=== PATIENT | female | born 1950 | race American Indian/Alaskan Native ===

== ENCOUNTER 2020-10-22 10:19 | Inpatient (IN) | payer BC, MEDICARE ==
--- NOTE | 2020-10-22 10:52 | Event Note ---
ED Screening Note Date of service: 10/22/20 Time: 10:50 ED Screening Note: 70-year-old -[place] female presents to the emergency room from a referral to her primary care provider for have an abnormal EKG. Patient does endorse that she has chest pressure that comes and goes and is worse with exertion up steps. Patient states that she does get a little short of breath when she walks up 13 steps. Patient also complains of 2 to 3 weeks of bilateral lower leg swelling with minimal discomfort not able to wear much of her shoes. It was reported to me by triage nurse that patient oxygen level bounces around as low as 91% on room air. This initial assessment/diagnostic orders/clinical plan/treatment(s) is/are subject to change based on patients health status, clinical progression and re- assessment by fellow clinical providers in the ED. Further treatment and workup at subsequent clinical providers discretion. Patient/guardian urged not to elope from the ED as their condition may be serious if not clinically assessed and managed. Initial orders include: Cardiac work-up with a BNP
[2020-10-22] MEDS ORDERED: ASPIRIN 81 MG TAB CHEW PO ONE (10:53)
[2020-10-22 11:10] LABS: Basophils % (Auto) 0.5 % (0.0-1.8); Eosinophils # (Auto) 0.3 K/mm3 (0.0-0.4); Eosinophils % (Auto) 4.1 % (0.0-4.3); Hematocrit 40.7 % (30.3-42.9); Hemoglobin 12.8 gm/dl (10.1-14.3); Lymphocytes % (Auto) 12.4 % (13.4-35.0); Mean Corpuscular HGB Conc 32 % (30-34); Mean Corpuscular Volume 89 fl (79-97); Monocytes # (Auto) 0.5 K/mm3 (0.0-0.8); Platelet Count 272 K/mm3 (140-440); Red Blood Count 4.56 M/mm3 (3.65-5.03)
--- NOTE | 2020-10-22 11:25 | Emergency Department Report ---
HPI - General Chief Complaint: Chest Pain Time Seen by Provider: 10/22/20 11:05 - [facility] HPI: Room 38 The patient is a 70-year-old female presenting with a chief complaint of chest pressure and lower extremity edema. The patient states for the past 3 weeks she has had exertional chest pressure and bilateral lower extremity edema. Patient denies nausea/vomiting or diaphoresis with her chest pressure but does admit to increased work of breathing with any form of exertion. Patient denies history of fever or contact with known COVID-19 positive patients. Patient admits to a chronic cough that she attributes to her sarcoidosis. ED Past Medical Hx - Past Medical History Previous Medical History?: Yes Additional medical history: scarcodosis - Surgical History Past Surgical History?: No - Family History Family history: no significant - Social History Smoking Status: Never Smoker Substance Use Type: None (Denies illicit drug use) - Medications Home Medications: Home Medications Medication Instructions Recorded Confirmed Last Taken Type Furosemide [Lasix] 10/22/20 Unknown History ED Review of Systems ROS: Stated complaint: CHEST PAIN Other details as noted in HPI Constitutional: denies: diaphoresis, fever Eyes: denies: eye pain ENT: denies: throat pain Respiratory: SOB with exertion Cardiovascular: chest pain, dyspnea on exertion Endocrine: no symptoms reported Gastrointestinal: denies: abdominal pain Genitourinary: denies: dysuria Musculoskeletal: denies: back pain Neurological: denies: headache Hematological/Lymphatic: other (Bilateral lower extremity edema) Physical Exam - Physical Exam Vital Signs: Vital Signs 10/22/20 10:49 Temperature 98.0 F Pulse Rate 106 H Respiratory 26 H Rate Blood Pressure 134/97 O2 Sat by Pulse 93 Oximetry Physical Exam: GENERAL: The patient is well-developed well-nourished female lying on stretcher not appearing to be in acute distress. [] HEENT: Normocephalic. Atraumatic. Extraocular motions are intact. Patient has moist mucous membranes. NECK: Supple. Trachea midline CHEST/LUNGS: Diminished at the right base. There is no respiratory distress noted. HEART/CARDIOVASCULAR: Regular. There is no tachycardia. There is no gallop rub or murmur. ABDOMEN: Abdomen is soft, nontender. Patient has normal bowel sounds. There is no abdominal distention. SKIN: There is no rash. There is 1+ bilateral lower extremity pitting edema. There is no diaphoresis. NEURO: The patient is awake, alert, and oriented. The patient is cooperative. The patient has no focal neurologic deficits. The patient has normal speech MUSCULOSKELETAL: There is no evidence of acute injury. ED Course Vital Signs 10/22/20 10:49 Temperature 98.0 F Pulse Rate 106 H Respiratory 26 H Rate Blood Pressure 134/97 O2 Sat by Pulse 93 Oximetry ED Medical Decision Making - Lab Data Result diagrams: 10/22/20 10:51 10/22/20 10:51 Laboratory Tests 10/22/20 10/22/20 10/22/20 10:51 10:51 10:51 WBC 7.8 RBC 4.56 Hgb 12.8 Hct 40.7 MCV 89 MCH 28 MCHC 32 RDW 15.0 Plt Count 272 Lymph % (Auto) 12.4 L [place] % (Auto) 6.0 Eos % (Auto) 4.1 Baso % (Auto) 0.5 Lymph # (Auto) 1.0 L [place] # (Auto) 0.5 Eos # (Auto) 0.3 Baso # (Auto) 0.0 Seg Neutrophils % 77.0 H Seg Neutrophils # 6.0 PT 13.8 INR 1.08 APTT 27.7 Sodium 141 Potassium 4.0 Chloride 105.8 Carbon Dioxide 27 Anion Gap 12 BUN 16 Creatinine 1.1 Estimated GFR 49 BUN/Creatinine Ratio 15 Glucose 89 Calcium 8.8 Total Bilirubin 0.40 AST 22 ALT 18 Alkaline Phosphatase 115 Troponin T < 0.010 NT-Pro-B Natriuret Pep Total Protein 7.3 Albumin 3.4 L Albumin/Globulin Ratio 0.9 10/22/20 10:51 WBC RBC Hgb Hct MCV MCH MCHC RDW Plt Count Lymph % (Auto) [place] % (Auto) Eos % (Auto) Baso % (Auto) Lymph # (Auto) [place] # (Auto) Eos # (Auto) Baso # (Auto) Seg Neutrophils % Seg Neutrophils # PT INR APTT Sodium Potassium Chloride Carbon Dioxide Anion Gap BUN Creatinine Estimated GFR BUN/Creatinine Ratio Glucose Calcium Total Bilirubin AST ALT Alkaline Phosphatase Troponin T NT-Pro-B Natriuret Pep 39926 H Total Protein Albumin Albumin/Globulin Ratio - EKG Data -: EKG Interpreted by Md EKG shows normal: sinus rhythm Rate: normal - EKG Data When compared to previous EKG there are: previous EKG unavailable Interpretation: nonspecific ST-T wave amelia (T wave inversions in leads III, aVF, V3, V4) - Radiology Data Radiology results: report reviewed (Chest x-ray), image reviewed (Chest x-ray) interpreted by me: Chest [id number] appearing interstitial disease. No pneumothorax [facility] [address] [place] [address] XRay Report Signed Patient: ROSALINAPIPPA MR#: [id number] : 1950 Acct:[id number] Age/Sex: 70 / F ADM Date: 10/22/20 Loc: ED Attending Dr: Ordering Physician: Amy Welch MD Date of Service: 10/22/20 Procedure(s): XR chest 1V ap Accession Number(s): [id number] cc: Amy Welch MD Fluoro Time In Minutes: CHEST 1 VIEW INDICATION: Chest Pain. COMPARISON: None FINDINGS: Support devices: None. Heart: Within normal limits. Lungs/Pleura: Severe diffuse interstitial prominence is seen throughout both lungs. Overall this appears chronic. Focal pleural thickening at the right lung apex is noted. No pleural effusion or pneumothorax is appreciated. Additional findings: None. IMPRESSION: Severe diffuse chronic interstitial lung disease is suspected. If further evaluation is needed, CT chest with contrast and high-resolution protocol is recommended. Signer Name: Niall Blair Jr, MD Signed: 10/22/2020 11:37 AM Workstation Name: [id number] Transcribed By: TTR Dictated By: NIALL BLAIR JR, MD Electronically Authenticated By: NIALL BLAIR JR, MD Signed Date/Time: 10/22/20 1137 DD/ 1136 TD/TT: - Differential Diagnosis ACS, CHF, pericarditis, GERD Critical care attestation.: If time is entered above; I have spent that time in minutes in the direct care of this critically ill patient, excluding procedure time. ED Disposition Clinical Impression: New onset of congestive heart failure, Chest pressure Disposition: OP ADMIT IP TO THIS HOSP Is pt being admited?: Yes Does the pt Need Aspirin: Yes Condition: Fair Time of Disposition: 12:01 (Hospitalist paged (Dr. Williamson)) HEART Score - HEART Score History: Highly suspicious EKG: Non-specific Age: > 65 Risk factors: 1-2 risk factors Troponin: Troponin T < 0.010 ng/mL (0.00-0.029) 10/22/20 10:51 Troponin: < normal limit HEART Score: 6
[2020-10-22 11:28] LABS: INR 1.08 (0.87-1.13); Partial Thromboplastin Time 27.7 Sec. (24.2-36.6)
--- NOTE | 2020-10-22 11:41 | XRay Report ---
CHEST 1 VIEW INDICATION: Chest Pain. COMPARISON: None FINDINGS: Support devices: None. Heart: Within normal limits. Lungs/Pleura: Severe diffuse interstitial prominence is seen throughout both lungs. Overall this appe ars chronic. Focal pleural thickening at the right lung apex is noted. No pleural effusion or pneumot horax is appreciated. Additional findings: None. IMPRESSION: Severe diffuse chronic interstitial lung disease is suspected. If further evaluation is needed, CT c hest with contrast and high-resolution protocol is recommended. Signer Name: Niall Burgess Jr, MD Signed: 10/22/2020 11:37 AM Workstation Name: [id number]
[2020-10-22] MEDS ORDERED: FUROSEMIDE 40 MG/4 ML INJ IV ONE (11:51)
[2020-10-22 11:53] LABS: Alanine Aminotransferase 18 units/L (7-56); Albumin 3.4 g/dL (3.9-5); BUN/Creatinine Ratio 15; Blood Urea Nitrogen 16 mg/dL (7-17); Calcium 8.8 mg/dL (8.4-10.2); Hemolysis Index 8
--- NOTE | 2020-10-22 12:42 | History and Physical Report ---
History of Present Illness Chief complaint: I feel weak History of present illness: 70 YO Female with Sarcoidosis, Severe Malnutrition presents to ED for evaluation. Patient reports "I feel weak". Patient states that she has experienced generalized weakness, decreased exercise tolerance, dyspnea on exertion, dyspnea at rest, bilateral lower extremity edema over the past 3 weeks with persistently worsening symptoms over the past 4 days. Patient was seen and evaluated by her primary care physician today and instructed to seek further care at [facility]. Patient transported to [facility] via private vehicle for further care and evaluation of the aforementioned symptoms. Patient seen and evaluated in the emergency department. All lab and imaging studies reviewed. Patient found to have clinical symptoms consistent with CHF decompensation. Patient also found to have CT scan findings on the chest consistent with pulmonary sarcoidosis. Patient admitted to telemetry and initiated on CHF protocol. Pulmonology team consulted in ED. Cardiology team consulted in ED. Patient denies fever, chills, chest pain, palpitation, productive cough, skin rash, recent ill contacts, or known exposure to COVID-19. No prior admission for review. No medication listed at time of admission for reconciliation. Advanced care planning conducted in ED. Past History Past Medical History: sarcoidosis, other (See HPI) Past Surgical History: No surgical history, Other (Reviewed) Social history: single. denies: smoking, alcohol abuse, prescription drug abuse Family history: hypertension Medications and Allergies Allergies Allergy/AdvReac Type Severity Reaction Status Date / Time No Known Allergies Allergy Verified 10/22/20 11:17 Home Medications Medication Instructions Recorded Confirmed Last Taken Type Furosemide [Lasix] 10/22/20 Unknown History Review of Systems Constitutional: no weight loss, no weight gain, no fever, no chills Ears, nose, mouth and throat: no ear pain, no tinnitis, no nose pain, no sinus pressure Breasts: no change in shape, no swelling Cardiovascular: no palpitations, no rapid/irregular heart beat, no lightheadedness Respiratory: shortness of breath, no cough, no cough with sputum, no hemoptysis Gastrointestinal: no abdominal pain, no nausea, no vomiting, no diarrhea, no change in bowel habits Genitourinary Female: no pelvic pain, no flank pain, no dysuria, no urinary frequency, no urgency Rectal: no pain, no incontinence, no bleeding Musculoskeletal: no neck stiffness, no neck pain, no arm numbness/tingling, no low back pain, no leg numbness/tingling Integumentary: no pruritis, no redness, no sores, no wounds, no jaundice, no blisters Neurological: no head injury, no transient paralysis, no weakness, no tingling, no seizures, no tremors, no ataxia Psychiatric: no anxiety, no sleep disturbances, no insomnia, no hypersomnia, no change in appetite Endocrine: no cold intolerance, no polyphagia, no excessive thirst, no polydipsia, no nocturia, no excessive sweating Hematologic/Lymphatic: no easy bleeding Allergic/Immunologic: no urticaria, no allergic rhinitis, no wheezing, no persistent infections, no anaphylaxis Exam - Constitutional Vitals: Temp Pulse Resp BP Pulse Ox 98.0 F 87 18 137/91 100 10/22/20 10:49 10/22/20 12:22 10/22/20 12:22 10/22/20 12:22 10/22/20 12:22 General appearance: Present: mild distress, cachectic - EENT Eyes: Present: PERRL ENT: hearing intact, clear oral mucosa - Neck Neck: Present: supple, normal ROM - Respiratory Respiratory effort: normal Respiratory: bilateral: diminished, rhonchi - Cardiovascular Heart Sounds: Present: S1 & S2. Absent: rub, click - Extremities Extremities: pulses symmetrical, No edema Peripheral Pulses: within normal limits - Abdominal General gastrointestinal: Present: soft, non-tender, non-distended, normal bowel sounds Female genitourinary: Present: normal - Integumentary Integumentary: Present: clear, warm, dry - Musculoskeletal Musculoskeletal: generalized weakness - Psychiatric Psychiatric: appropriate mood/affect, intact judgment & insight - Neurologic Neurologic: CNII-XII intact, moves all extremities HEART Score - HEART Score EKG: Non-specific Age: > 65 Risk factors: 1-2 risk factors Troponin: Troponin T < 0.010 ng/mL (0.00-0.029) 10/22/20 10:51 Troponin: < normal limit Results - Labs CBC & Chem 7: 10/22/20 10:51 10/22/20 10:51 Labs: Abnormal lab results 10/22/20 10/22/20 10/22/20 Range/Units 10:51 10:51 10:51 Lymph % (Auto) 12.4 L (13.4-35.0) % Lymph # (Auto) 1.0 L (1.2-5.4) K/mm3 Seg Neutrophils % 77.0 H (40.0-70.0) % NT-Pro-B Natriuret Pep 79049 H (0-900) pg/mL Albumin 3.4 L (3.9-5) g/dL Assessment and Plan - Patient Problems (1) New onset of congestive heart failure Current Visit: Yes Status: Acute Plan to address problem: Diastolic CHF: Strict I/O, monitor urine output every shift, daily weight, afterload reduction, echocardiogram ordered and is pending at time of admission, cardiology team consulted in ED, thyroid panel, magnesium level, supplemental oxygen. (2) Sarcoidosis Current Visit: Yes Status: Acute Plan to address problem: IV steroid therapy, supportive care, outpatient rheumatology follow-up. (3) Severe malnutrition Current Visit: Yes Status: Acute Plan to address problem: Increase protein intake, dietary supplementation as needed (4) DVT prophylaxis Current Visit: Yes Status: Acute Plan to address problem: SCD to bilateral lower extremities while in bed, patient is ambulatory. (5) Advance care planning Current Visit: Yes Status: Acute Plan to address problem: Disease education conducted, patient is full code, care plan discussed, prognosis discussed, diagnosis discussed, patient knowledges understanding and agreement with care plan, +30 minutes.
[2020-10-22] MEDS ORDERED: ACETAMINOPHEN 325 MG TAB PO PRN (13:00)
[2020-10-22] MEDS ORDERED: ONDANSETRON 4 MG/2 ML INJ IV PRN (13:30)
[2020-10-22] MEDS: methylPREDNISolone Sod Succinate 40 MG/1 ML INJ IV SCH ×2 (14:20→21:36)
[2020-10-22] MEDS ORDERED: ALBUTEROL 2.5 MG/3 ML NEBU IH PRN (16:00)
[2020-10-22 19:57] LABS: Free T4 (Free Thyroxine) 1.61 ng/dL (0.76-1.46)
[2020-10-23] MEDS: methylPREDNISolone Sod Succinate 40 MG/1 ML INJ IV SCH ×3 (05:55→22:59)
[2020-10-23 07:07] LABS: Basophils % (Auto) 0.3 % (0.0-1.8); Eosinophils % (Auto) 0.1 % (0.0-4.3); Hematocrit 39.5 % (30.3-42.9); Hemoglobin 12.7 gm/dl (10.1-14.3); Lymphocytes # (Auto) 0.5 K/mm3 (1.2-5.4); Lymphocytes % (Auto) 9.7 % (13.4-35.0); Mean Corpuscular HGB Conc 32 % (30-34); Mean Corpuscular Volume 89 fl (79-97); Monocytes # (Auto) 0.1 K/mm3 (0.0-0.8); Platelet Count 260 K/mm3 (140-440); Red Blood Count 4.43 M/mm3 (3.65-5.03); Red Cell Distribution Width 14.5 % (13.2-15.2)
[2020-10-23 07:26] LABS: Calcium 8.4 mg/dL (8.4-10.2)
--- NOTE | 2020-10-23 08:37 | Progress Note ---
Assessment and Plan Assessment and plan: (1) New onset of congestive heart failure Current Visit: Yes Status: Acute Plan to address problem: Diastolic CHF: Strict I/O, monitor urine output every shift, daily weight, afterload reduction, echocardiogram ordered and is pending at time of admission, cardiology team consulted in ED, thyroid panel, magnesium level, supplemental oxygen. (2) Sarcoidosis Current Visit: Yes Status: Acute Plan to address problem: IV steroid therapy, supportive care, outpatient rheumatology follow-up. (3) Severe malnutrition Current Visit: Yes Status: Acute Plan to address problem: Increase protein intake, dietary supplementation as needed (4) DVT prophylaxis Current Visit: Yes Status: Acute Plan to address problem: SCD to bilateral lower extremities while in bed, patient is ambulatory. (5) Advance care planning Current Visit: Yes Status: Acute Plan to address problem: 10/23/2020 -Patient is admitted for suspected CHF, patient has elevated BNP. Cardiology consulted and will get echo -Sarcoidosis; pulmonary consulted and recommend CT of the chest -Severe malnutrition; I will consult nutrition -Patient need PT OT evaluation -We will do home O2 evaluation History Interval history: Patient was seen and evaluated this morning Patient states she is feeling better and wants to go home Hospitalist Physical - Physical exam Narrative exam: Not in cardiopulmonary distress. The patient appeared well nourished and normally developed. Vital signs as documented. Head exam is unremarkable. No scleral icterus . Neck is without jugular venous distension, thyromegaly, or carotid bruits. Lungs are clear to auscultation. Cardiac exam reveals regular rate and Rhythm. Abdominal exam reveals normal bowel sounds, nontender, no organomegaly. Extremities bilateral lower extremity swelling. WINDOWS ADMIN: Alert and oriented 3. No focal weakness. - Constitutional Vitals: Temp Pulse Resp BP Pulse Ox 98.3 F 95 H 18 115/79 96 10/23/20 04:08 10/23/20 04:08 10/23/20 04:08 10/23/20 04:08 10/23/20 04:08 General appearance: Present: mild distress, cachectic HEART Score - HEART Score EKG: Non-specific Age: > 65 Risk factors: 1-2 risk factors Troponin: Troponin T < 0.010 ng/mL (0.00-0.029) 10/22/20 10:51 Troponin: < normal limit Results - Labs CBC & Chem 7: 10/23/20 05:29 02/20/21 05:29 Labs: Laboratory Last Values WBC 5.0 K/mm3 (4.5-11.0) 10/23/20 05:29 RBC 4.43 M/mm3 (3.65-5.03) 10/23/20 05:29 Hgb 12.7 gm/dl (10.1-14.3) 10/23/20 05:29 Hct 39.5 % (30.3-42.9) 10/23/20 05:29 MCV 89 fl (79-97) 10/23/20 05:29 MCH 29 pg (28-32) 10/23/20 05:29 MCHC 32 % (30-34) 10/23/20 05:29 RDW 14.5 % (13.2-15.2) 10/23/20 05:29 Plt Count 260 K/mm3 (140-440) 10/23/20 05:29 Lymph % (Auto) 9.7 % (13.4-35.0) L 10/23/20 05:29 [place] % (Auto) 2.0 % (0.0-7.3) 10/23/20 05:29 Eos % (Auto) 0.1 % (0.0-4.3) 10/23/20 05:29 Baso % (Auto) 0.3 % (0.0-1.8) 10/23/20 05:29 Lymph # (Auto) 0.5 K/mm3 (1.2-5.4) L 10/23/20 05:29 [place] # (Auto) 0.1 K/mm3 (0.0-0.8) 10/23/20 05:29 Eos # (Auto) 0.0 K/mm3 (0.0-0.4) 10/23/20 05:29 Baso # (Auto) 0.0 K/mm3 (0.0-0.1) 10/23/20 05:29 Seg Neutrophils % 87.9 % (40.0-70.0) H 10/23/20 05:29 Seg Neutrophils # 4.4 K/mm3 (1.8-7.7) 10/23/20 05:29 PT 13.8 Sec. (12.2-14.9) 10/22/20 10:51 INR 1.08 (0.87-1.13) 10/22/20 10:51 APTT 27.7 Sec. (24.2-36.6) 10/22/20 10:51 Sodium 141 mmol/L (137-145) 10/23/20 05:29 Potassium 4.3 mmol/L (3.6-5.0) 10/23/20 05:29 Chloride 104.5 mmol/L (98-107) 10/23/20 05:29 Carbon Dioxide 28 mmol/L (22-30) 10/23/20 05:29 Anion Gap 13 mmol/L 10/23/20 05:29 BUN 21 mg/dL (7-17) H 10/23/20 05:29 Creatinine 1.1 mg/dL (0.6-1.2) 10/23/20 05:29 Estimated GFR 59 ml/min 10/23/20 05:29 BUN/Creatinine Ratio 19 % 10/23/20 05:29 Glucose 175 mg/dL (65-100) H 10/23/20 05:29 Calcium 8.4 mg/dL (8.4-10.2) 10/23/20 05:29 Magnesium 1.90 mg/dL (1.7-2.3) 10/22/20 18:52 Total Bilirubin 0.40 mg/dL (0.1-1.2) 10/22/20 10:51 AST 22 units/L (5-40) 10/22/20 10:51 ALT 18 units/L (7-56) 10/22/20 10:51 Alkaline Phosphatase 115 units/L (35-129) 10/22/20 10:51 Troponin T < 0.010 ng/mL (0.00-0.029) 10/22/20 10:51 NT-Pro-B Natriuret Pep 27087 pg/mL (0-900) H 10/22/20 10:51 Total Protein 7.3 g/dL (6.3-8.2) 10/22/20 10:51 Albumin 3.4 g/dL (3.9-5) L 10/22/20 10:51 Albumin/Globulin Ratio 0.9 % 10/22/20 10:51 TSH 0.796 mlU/mL (0.270-4.200) 10/22/20 18:52 Free T4 1.61 ng/dL (0.76-1.46) H 10/22/20 18:52 [place]/IV: Voiding Method Toilet Active Medications - Current Medications Current Medications: Generic Name Dose Route Start Last Admin Trade Name Freq PRN Reason Stop Dose Admin Acetaminophen 650 mg 10/22/20 13:00 Acetaminophen 325 Mg Tab PO Q4H PRN Pain MILD(1-3)/Fever >100.5/QUINONES Albuterol 2.5 mg 10/22/20 16:00 Albuterol 2.5 Mg/3 Ml Nebu IH Q4HRT PRN Shortness Of Breath Methylprednisolone Sodium Succinate 40 mg 10/22/20 14:00 10/23/20 05:55 Methylprednisolone Sod Succinate 40 Mg/1 Ml Inj IV 40 mg Q8HR GABBI Administration Ondansetron HCl 4 mg 10/22/20 13:30 Ondansetron 4 Mg/2 Ml Inj IV Q8H PRN Nausea And Vomiting Sodium Chloride 10 ml 10/22/20 14:00 10/22/20 21:45 Sodium Chloride 0.9% 10 Ml Flush Syringe IV 10 ml BID GABBI Administration Sodium Chloride 10 ml 10/22/20 13:30 Sodium Chloride 0.9% 10 Ml Flush Syringe IV PRN PRN LINE FLUSH
--- NOTE | 2020-10-23 10:53 | Consultation ---
History of Present Illness Consult date: 10/23/20 Requesting physician: NELDA GARCIA Consult reason: congestive heart failure History of present illness: 70-year-old female with history of sarcoidosis malnutrition been having swelling in her legs on and off for several weeks. Patient also getting shortness of breath now going up stairs that was not present before no PND orthopnea. Patient in ED was found to have a BNP of 10,000. CT of the chest shows scarring from sarcoidosis swelling has improved with Lasix. Patient denies any fever chills. Patient was also found to be in hypoxic with saturation 91% and has been fluctuating. Patient states losing weight for several months. No diarrhea no black stools no syncope Past History Past Medical History: sarcoidosis, other (See HPI) Past Surgical History: No surgical history, Other (Reviewed) Social history: single. denies: smoking, alcohol abuse, prescription drug abuse Family history: hypertension Medications and Allergies Allergies Allergy/AdvReac Type Severity Reaction Status Date / Time No Known Allergies Allergy Verified 10/22/20 11:17 Home Medications Medication Instructions Recorded Confirmed Last Taken Type Furosemide [Lasix] 10/22/20 Unknown History Active Meds: Active Medications Acetaminophen (Acetaminophen 325 Mg Tab) 650 mg PO Q4H PRN PRN Reason: Pain MILD(1-3)/Fever >100.5/QUINONES Albuterol (Albuterol 2.5 Mg/3 Ml Nebu) 2.5 mg IH Q4HRT PRN PRN Reason: Shortness Of Breath Furosemide (Furosemide 20 Mg Tab) 20 mg PO QDAY [facility] Methylprednisolone Sodium Succinate (Methylprednisolone Sod Succinate 40 Mg/1 Ml Inj) 40 mg IV Q8HR [facility] Last Admin: 10/23/20 05:55 Dose: 40 mg Documented by: Metoprolol Succinate (Metoprolol Succinate Xl 25 Mg Tab) 25 mg PO QDAY GABBI Ondansetron HCl (Ondansetron 4 Mg/2 Ml Inj) 4 mg IV Q8H PRN PRN Reason: Nausea And Vomiting Sodium Chloride (Sodium Chloride 0.9% 10 Ml Flush Syringe) 10 ml IV BID [facility] Last Admin: 10/23/20 10:19 Dose: 10 ml Documented by: Sodium Chloride (Sodium Chloride 0.9% 10 Ml Flush Syringe) 10 ml IV PRN PRN PRN Reason: LINE FLUSH Review of Systems All systems: negative (As per the HPI) Physical Examination Vital Signs Temp Pulse Resp BP Pulse Ox 98.0 F 106 H 26 H 134/97 93 10/22/20 10:49 10/22/20 10:49 10/22/20 10:49 10/22/20 10:49 10/22/20 10:49 General appearance: no acute distress, cachectic HEENT: Positive: PERRL, Mucus Membranes Moist Neck: Positive: neck supple, trachea midline Cardiac: Positive: Reg Rate and Rhythm, S1/S2. Negative: Audible Murmur Lungs: Positive: clear to auscultation, Normal Breath Sounds Neuro: Positive: Grossly Intact Abdomen: Positive: Soft, Active Bowel Sounds. Negative: Tender, Distended Female genitourinary: deferred Skin: Positive: Clear Incision: Cardiac Cath Site Musculoskeletal: No Pain, Normal Range of Motion Extremities: Present: normal. Absent: edema Results 10/23/20 05:29 10/23/20 05:29 Cardiac Enzymes 10/22/20 Range/Units 10:51 AST 22 (5-40) units/L Coagulation 10/22/20 Range/Units 10:51 PT 13.8 (12.2-14.9) Sec. INR 1.08 (0.87-1.13) APTT 27.7 (24.2-36.6) Sec. CBC 10/22/20 10/23/20 Range/Units 10:51 05:29 WBC 7.8 5.0 (4.5-11.0) K/mm3 RBC 4.56 4.43 (3.65-5.03) M/mm3 Hgb 12.8 12.7 (10.1-14.3) gm/dl Hct 40.7 39.5 (30.3-42.9) % Plt Count 272 260 (140-440) K/mm3 Lymph # (Auto) 1.0 L 0.5 L (1.2-5.4) K/mm3 [place] # (Auto) 0.5 0.1 (0.0-0.8) K/mm3 Eos # (Auto) 0.3 0.0 (0.0-0.4) K/mm3 Baso # (Auto) 0.0 0.0 (0.0-0.1) K/mm3 Comprehensive Metabolic Panel 02/19/21 02/20/21 Range/Units 10:51 05:29 Sodium 141 141 (137-145) mmol/L Potassium 4.0 4.3 (3.6-5.0) mmol/L Chloride 105.8 104.5 (98-107) mmol/L Carbon Dioxide 27 28 (22-30) mmol/L BUN 16 21 H (7-17) mg/dL Creatinine 1.1 1.1 (0.6-1.2) mg/dL Glucose 89 175 H (65-100) mg/dL Calcium 8.8 8.4 (8.4-10.2) mg/dL AST 22 (5-40) units/L ALT 18 (7-56) units/L Alkaline Phosphatase 115 (35-129) units/L Total Protein 7.3 (6.3-8.2) g/dL Albumin 3.4 L (3.9-5) g/dL - Imaging and Cardiology Echo: pending EKG interpretations - Telemetry EKG Rhythm: Sinus Rhythm (Sinus rhythm nonspecific ST-T) Assessment and Plan 70-year-old female with respiratory failure with hypoxemia on oxygen elevated BNP suggestive of acute heart failure with sarcoidosis and malnutrition start low-dose beta-vincent therapy waiting echocardiogram continue diuretics change to oral. - Patient Problems (1) Acute respiratory failure with hypoxemia Current Visit: Yes Status: Chronic (2) Chest pressure Current Visit: Yes Status: Acute (3) New onset of congestive heart failure Current Visit: Yes Status: Acute (4) Sarcoidosis Current Visit: Yes Status: Chronic (5) Severe malnutrition Current Visit: Yes Status: Chronic
--- NOTE | 2020-10-23 11:57 | Consultation ---
History of Present Illness Reason for consult: dyspnea, hypoxemia, other (sarcoid) History of present illness: This is an elderly AAF w history of sarcoid for greater than 30 yrs treated with prednisone intermittently in the past, not on o2 at home who comes in with dyspnea. She was found to have LE swelling elevated BNP and hypoxia. She was treated with diuresis with improvement of swelling. She was dx with sarcoid in her late 30s. She was treated with steroids for about 6 mths. She has had intermittent flares and has required steroids. Her last steroid therapy was greater than 1 yr ago. She has had skin lesions but no cardiac or optho signs. She reports that she has had scarring in her lungs for 'a long time'. She is not on o2 at home. She also has lost 20 to 30 lbs in 6 mths. She has intermittent abdominal pain but no melaena or bloody stools, no hx of PUD. 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 denies: smoking, alcohol abuse, prescription drug abuse Family history: hypertension Medications and Allergies Allergies Allergy/AdvReac Type Severity Reaction Status Date / Time No Known Allergies Allergy Verified 10/22/20 11:17 Home Medications Medication Instructions Recorded Confirmed Last Taken Type Furosemide [Lasix] 10/22/20 Unknown History Active Meds: Active Medications Acetaminophen (Acetaminophen 325 Mg Tab) 650 mg PO Q4H PRN PRN Reason: Pain MILD(1-3)/Fever >100.5/QUINONES Albuterol (Albuterol 2.5 Mg/3 Ml Nebu) 2.5 mg IH Q4HRT PRN PRN Reason: Shortness Of Breath Furosemide (Furosemide 20 Mg Tab) 20 mg PO QDAY [facility] Methylprednisolone Sodium Succinate (Methylprednisolone Sod Succinate 40 Mg/1 Ml Inj) 40 mg IV Q8HR [facility] Last Admin: 10/23/20 05:55 Dose: 40 mg Documented by: Metoprolol Succinate (Metoprolol Succinate Xl 25 Mg Tab) 25 mg PO QDAY GABBI Ondansetron HCl (Ondansetron 4 Mg/2 Ml Inj) 4 mg IV Q8H PRN PRN Reason: Nausea And Vomiting Sodium Chloride (Sodium Chloride 0.9% 10 Ml Flush Syringe) 10 ml IV BID [facility] Last Admin: 10/23/20 10:19 Dose: 10 ml Documented by: Sodium Chloride (Sodium Chloride 0.9% 10 Ml Flush Syringe) 10 ml IV PRN PRN PRN Reason: LINE FLUSH Physical Examination Vital signs: Vital Signs Temp Pulse Resp BP Pulse Ox 98.0 F 106 H 26 H 134/97 93 10/22/20 10:49 10/22/20 10:49 10/22/20 10:49 10/22/20 10:49 10/22/20 10:49 ENT: oropharynx moist Neck: supple Effort: normal Ascultation: Bilateral: clear Cardiovascular: regular rate and rhythm Gastrointestinal: normoactive bowel sounds Integumentary: normal Extremities: edema Musculoskeletal: no deformities Gait: normal gait normal mental status, non-focal exam mood appropriate, affect normal Results - Laboratory Findings CBC and BMP: 10/23/20 05:29 10/23/20 05:29 PT/INR, D-dimer PT 13.8 Sec. (12.2-14.9) 10/22/20 10:51 INR 1.08 (0.87-1.13) 10/22/20 10:51 Abnormal lab findings: Abnormal Labs 10/22/20 10/22/20 10/22/20 10:51 10:51 10:51 Lymph % (Auto) 12.4 L Lymph # (Auto) 1.0 L Seg Neutrophils % 77.0 H BUN Glucose NT-Pro-B Natriuret Pep 40017 H Albumin 3.4 L Free T4 10/22/20 10/23/20 10/23/20 18:52 05:29 05:29 Lymph % (Auto) 9.7 L Lymph # (Auto) 0.5 L Seg Neutrophils % 87.9 H BUN 21 H Glucose 175 H NT-Pro-B Natriuret Pep Albumin Free T4 1.61 H - Diagnostic Findings Chest x-ray: report reviewed, image reviewed Assessment and Plan - Patient Problems (1) Edema Current Visit: Yes Status: Acute (2) New onset of congestive heart failure Current Visit: Yes Status: Acute (3) Acute respiratory failure with hypoxemia Current Visit: Yes Status: Chronic (4) Sarcoidosis Current Visit: Yes Status: Chronic (5) Severe malnutrition Current Visit: Yes Status: Chronic
[2020-10-23] MEDS: METOPROLOL SUCCINATE XL 25 MG TAB PO SCH (14:26)
[2020-10-23] MEDS: FUROSEMIDE 20 MG TAB PO SCH (14:26)
[2020-10-24 05:54] LABS: BUN/Creatinine Ratio 27; Blood Urea Nitrogen 24 mg/dL (7-17); Calcium 8.7 mg/dL (8.4-10.2); Hemolysis Index 3
[2020-10-24] MEDS: methylPREDNISolone Sod Succinate 40 MG/1 ML INJ IV SCH ×3 (06:54→22:10)
--- NOTE | 2020-10-24 09:43 | Progress Note ---
Assessment and Plan Assessment and plan: (1) New onset of congestive heart failure Current Visit: Yes Status: Acute Plan to address problem: Diastolic CHF: Strict I/O, monitor urine output every shift, daily weight, afterload reduction, echocardiogram ordered and is pending at time of admission, cardiology team consulted in ED, thyroid panel, magnesium level, supplemental oxygen. (2) Sarcoidosis Current Visit: Yes Status: Acute Plan to address problem: IV steroid therapy, supportive care, outpatient rheumatology follow-up. (3) Severe malnutrition Current Visit: Yes Status: Acute Plan to address problem: Increase protein intake, dietary supplementation as needed (4) DVT prophylaxis Current Visit: Yes Status: Acute Plan to address problem: SCD to bilateral lower extremities while in bed, patient is ambulatory. (5) Advance care planning Current Visit: Yes Status: Acute Plan to address problem: 10/23/2020 -Patient is admitted for suspected CHF, patient has elevated BNP. Cardiology consulted and will get echo -Sarcoidosis; pulmonary consulted and recommend CT of the chest -Severe malnutrition; I will consult nutrition -Patient need PT OT evaluation -We will do home O2 evaluation 10/24/2020 -CT chest was not done because patient did not have IV access -Pulmonary and cardiology consult appreciated -Patient is off oxygen History Interval history: Patient was seen and evaluated this morning Patient states she is feeling better, patient was off oxygen Hospitalist Physical - Physical exam Narrative exam: Not in cardiopulmonary distress. The patient appeared well nourished and normally developed. Vital signs as documented. Head exam is unremarkable. No scleral icterus . Neck is without jugular venous distension, thyromegaly, or carotid bruits. Lungs are clear to auscultation. Cardiac exam reveals regular rate and Rhythm. Abdominal exam reveals normal bowel sounds, nontender, no organomegaly. Extremities bilateral lower extremity swelling. EVALUATION SPECIALIST: Alert and oriented 3. No focal weakness. - Constitutional Vitals: Temp Pulse Resp BP Pulse Ox 97.4 F L 81 18 111/77 90 10/24/20 05:35 10/24/20 05:35 10/24/20 05:35 10/24/20 05:35 10/24/20 09:37 General appearance: Present: mild distress, cachectic HEART Score - HEART Score EKG: Non-specific Age: > 65 Risk factors: 1-2 risk factors Troponin: Troponin T < 0.010 ng/mL (0.00-0.029) 10/23/20 12:49 Troponin: < normal limit Results - Labs CBC & Chem 7: 10/23/20 05:29 10/24/20 04:18 Labs: Laboratory Last Values WBC 5.0 K/mm3 (4.5-11.0) 10/23/20 05:29 RBC 4.43 M/mm3 (3.65-5.03) 10/23/20 05:29 Hgb 12.7 gm/dl (10.1-14.3) 10/23/20 05:29 Hct 39.5 % (30.3-42.9) 10/23/20 05:29 MCV 89 fl (79-97) 10/23/20 05:29 MCH 29 pg (28-32) 10/23/20 05:29 MCHC 32 % (30-34) 10/23/20 05:29 RDW 14.5 % (13.2-15.2) 10/23/20 05:29 Plt Count 260 K/mm3 (140-440) 10/23/20 05:29 Lymph % (Auto) 9.7 % (13.4-35.0) L 10/23/20 05:29 [place] % (Auto) 2.0 % (0.0-7.3) 10/23/20 05:29 Eos % (Auto) 0.1 % (0.0-4.3) 10/23/20 05:29 Baso % (Auto) 0.3 % (0.0-1.8) 10/23/20 05:29 Lymph # (Auto) 0.5 K/mm3 (1.2-5.4) L 10/23/20 05:29 [place] # (Auto) 0.1 K/mm3 (0.0-0.8) 10/23/20 05:29 Eos # (Auto) 0.0 K/mm3 (0.0-0.4) 10/23/20 05:29 Baso # (Auto) 0.0 K/mm3 (0.0-0.1) 10/23/20 05:29 Seg Neutrophils % 87.9 % (40.0-70.0) H 10/23/20 05:29 Seg Neutrophils # 4.4 K/mm3 (1.8-7.7) 10/23/20 05:29 PT 13.8 Sec. (12.2-14.9) 10/22/20 10:51 INR 1.08 (0.87-1.13) 10/22/20 10:51 APTT 27.7 Sec. (24.2-36.6) 10/22/20 10:51 Sodium 140 mmol/L (137-145) 10/24/20 04:18 Potassium 4.4 mmol/L (3.6-5.0) 10/24/20 04:18 Chloride 104.1 mmol/L (98-107) 10/24/20 04:18 Carbon Dioxide 31 mmol/L (22-30) H 10/24/20 04:18 Anion Gap 9 mmol/L 10/24/20 04:18 BUN 24 mg/dL (7-17) H 10/24/20 04:18 Creatinine 0.9 mg/dL (0.6-1.2) 10/24/20 04:18 Estimated GFR > 60 ml/min 10/24/20 04:18 BUN/Creatinine Ratio 27 % 10/24/20 04:18 Glucose 81 mg/dL (65-100) 10/24/20 04:18 Calcium 8.7 mg/dL (8.4-10.2) 10/24/20 04:18 Magnesium 1.90 mg/dL (1.7-2.3) 10/22/20 18:52 Total Bilirubin 0.40 mg/dL (0.1-1.2) 10/22/20 10:51 AST 22 units/L (5-40) 10/22/20 10:51 ALT 18 units/L (7-56) 10/22/20 10:51 Alkaline Phosphatase 115 units/L (35-129) 10/22/20 10:51 Troponin T < 0.010 ng/mL (0.00-0.029) 10/23/20 12:49 NT-Pro-B Natriuret Pep 04019 pg/mL (0-900) H 10/22/20 10:51 Total Protein 7.3 g/dL (6.3-8.2) 10/22/20 10:51 Albumin 3.4 g/dL (3.9-5) L 10/22/20 10:51 Albumin/Globulin Ratio 0.9 % 10/22/20 10:51 TSH 0.796 mlU/mL (0.270-4.200) 10/22/20 18:52 Free T4 1.61 ng/dL (0.76-1.46) H 10/22/20 18:52 - Diagnostic Impressions Diagnostic Impressions: Echocardiogram 10/22/20 12:58 Transthoracic Echocardiogram Indication: Chest pain BP: 115/79 HR: 93 Conclusions *Global left ventricular systolic function is normal. *The estimated ejection fraction is 50-55%. *There is septal flattening of the interventricular septum consistent with right ventricular volume or pressure overload. *The right ventricle is mild to moderately dilated. *The right ventricular global systolic function is mildly reduced. *The right atrium is mildly dilated. *There is trace of mitral regurgitation. *There is no evidence of aortic regurgitation. *There is moderate tricuspid regurgitation. *The right ventricular systolic pressure is calculated at 66 mmHg. Findings Left Ventricle: The left ventricular chamber size is normal. Global left ventricular systolic function is normal. The estimated ejection fraction is 50-55%. There is septal flattening of the interventricular septum consistent with right ventricular volume or pressure overload. Abnormal left ventricular diastolic filling is observed, consistent with impaired relaxation. Left Atrium: The left atrial chamber size is normal. Right Ventricle: The right ventricle is mild to moderately dilated. The right ventricular global systolic function is mildly reduced. Right Atrium: The right atrium is mildly dilated. Aortic Valve: Mild aortic leaflet calcification is visualized. There is no evidence of aortic regurgitation. Mitral Valve: The mitral valve leaflets are mildly thickened. There is trace of mitral regurgitation. Tricuspid Valve: The tricuspid valve leaflets are normal. There is moderate tricuspid regurgitation. The right ventricular systolic pressure is calculated at 66 mmHg. Pulmonic Valve: The pulmonic valve appears normal. There is trace pulmonic regurgitation. Pericardium: There is no pericardial effusion. Aorta: The aorta appears normal. Venous: The inferior vena cava appears normal in size. There is less than 50% respiratory change in the inferior vena cava dimension. Measurements Chambers 2D Name Value Normal Range IVSd (2D) 1.09 cm (0.6 - 1.1) LVPWd (2D) 0.9 cm (0.6 - 1.1) LVIDd (2D) 3.22 cm (3.7 - 5.6) LVIDs (2D) 2.28 cm (2 - 3.8) LV FS (2D) 29.25 % - EF Teichholz (2D) 57.46 % - Ao root diameter (2D) 2.08 cm (2 - 3.7) Volumes/Mass Name Value Normal Range LA ESV SP 4CH (A/L) 24.23 ml - LA ESV SP 2CH (A/L) 19.81 ml - LA ESV BP (A/L) 22.69 ml - LA ESV BP (A/L) index 15.13 ml/m2 - LA ESV SP 4CH (MOD) 21.57 ml - LA ESV SP 2CH (MOD) 20.36 ml - LA ESV BP (MOD) 21 ml - LA ESV BP (MOD) index 14 ml/m2 - Diastolic/Systolic Function Name Value Normal Range MV E-wave Vmax 0.52 m/sec - MV deceleration time 189.47 msec - MV A-wave Vmax 0.9 m/sec - MV E:A ratio 0.58 ratio - Aortic Valve Name Value Normal Range AV Vmax 1.08 m/sec - AV VTI 18.28 cm - AV peak gradient 4.68 mmHg - AV mean gradient 2.38 mmHg - LVOT diameter 2.04 cm - LVOT Vmax 0.78 m/sec - LVOT VTI 14.26 cm - LVOT peak gradient 2.43 mmHg - LVOT mean gradient 1.27 mmHg - SV LVOT 46.41 ml - DAVID (continuity Vmax) 2.35 cm2 - DAVID (continuity VTI) 2.54 cm2 - Ascending Ao 2.33 cm - Tricuspid Valve Name Value Normal Range TR Vmax 3.81 m/sec - TR peak gradient 58 mmHg - RAP 8 mmHg - RVSP 66 mmHg - IVC diameter 2.05 cm (1.2 - 2.3) Pulmonic Valve/Qp:Qs Name Value Normal Range PV Vmax 0.87 m/sec - PV peak gradient 3.06 mmHg - CO end-diastolic Vmax 2.25 m/sec - PV acceleration time 114.18 msec - [place]/IV: Voiding Method Toilet Active Medications - Current Medications Current Medications: Generic Name Dose Route Start Last Admin Trade Name Freq PRN Reason Stop Dose Admin Acetaminophen 650 mg 10/22/20 13:00 Acetaminophen 325 Mg Tab PO Q4H PRN Pain MILD(1-3)/Fever >100.5/QUINONES Albuterol 2.5 mg 10/22/20 16:00 Albuterol 2.5 Mg/3 Ml Nebu IH Q4HRT PRN Shortness Of Breath Furosemide 20 mg 10/23/20 11:00 10/23/20 14:26 Furosemide 20 Mg Tab PO 20 mg QDAY GABBI Administration Methylprednisolone Sodium Succinate 40 mg 10/22/20 14:00 10/24/20 06:54 Methylprednisolone Sod Succinate 40 Mg/1 Ml Inj IV Not Given Q8HR GABBI Metoprolol Succinate 25 mg 10/23/20 11:00 10/23/20 14:26 Metoprolol Succinate Xl 25 Mg Tab PO 25 mg QDAY GABBI Administration Ondansetron HCl 4 mg 10/22/20 13:30 Ondansetron 4 Mg/2 Ml Inj IV Q8H PRN Nausea And Vomiting Sodium Chloride 10 ml 10/22/20 14:00 10/23/20 22:59 Sodium Chloride 0.9% 10 Ml Flush Syringe IV Not Given BID GABBI Sodium Chloride 10 ml 10/22/20 13:30 Sodium Chloride 0.9% 10 Ml Flush Syringe IV PRN PRN LINE FLUSH Nutrition/Malnutrition Assess - Dietary Evaluation Nutrition/Malnutrition Findings: Nutrition Notes Start: 10/23/20 10:48 Freq: Status: Active Protocol: Document 10/23/20 10:48 LM (Rec: 10/23/20 11:07 LM [id number]) Nutrition Notes Need for Assessment generated from: MD Order Initial or Follow up Assessment Current Diagnosis Heart Failure Other Pertinent Diagnosis Sarcoidosis Current Diet Cardiac Labs/Tests BUN 21 BG 175 Pertinent Medications Solumedrol Height 5 ft 4 in Weight 48.89 kg [place] Body Weight (kg) 54.54 BMI 18.5 Weight change and time frame 20-23% wt loss in 1 year Pitting edema noted Weight Status Underweight Subjective/Other Information MD consult for malnutrition. 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 Pt ate some toast for breakfast due to not liking the food. Food preferences updated. Pt ate 100% yesterday per chart. Pt newly dx with CHF. Discussed and provided HF handout. Observed muscle wasting of clavicle and deltoid area. Burn Absent Trauma Absent GI Symptoms None Current % PO Fair (50-74%) Minimum of two criteria Yes Interpretation of Weight Loss (non- 20% in 1 year severe) Muscle Mass Mild Depletion (non-severe) Fluid Accumulation Mild (non-severe) #2 Nutrition Diagnosis Food and nutrition-related knowledge deficit Etiology No prior diet education on CHF As Evidenced by Signs and Symptoms Pt with 2+ pitting edema #1 Nutrition Diagnosis Malnutrition Etiology Sarcoidosis, CHF As Evidenced by Signs and Symptoms 20% wt loss in 1 year, 2+ pitting edema, muscle wasting of clavicle and deltoid Is patient on ventilator? No Is Patient Ambulatory and/or Out of Bed Yes REE-([place]-St. Jeor-ambulatory/OOB) [ 1285.570 [id number]] Kcal/Kg value to use for calculation 33 Approximate Energy Requirements Using 1613 kcal/Kg Additional Notes Protein: 58-74g (1.2-1.5g/kg) Fluid: 1500-1900ml or per MD Nutrition Intervention Change Diet Order: Continue Add Supplement/Snack (indicate name/kcal Ensure Enlive BID /protein ) Provides kCal: 700 Provides Protein (gm) 40 Teaching Recipient Patient Learning Readiness Good Teaching Methods Discussion,Handout Education Handouts Provided CHF Nutrition Therapy Barriers to Learning No Barriers RD phone number provided Yes Patient aware of follow up options Yes Goal #1 Meet at least 80% of energy and protein needs Goal #2 Wt gain/maintenacne Anticipated Discharge Needs: Cardiac with ONS PRN Follow-Up By: 10/25/20 Additional Comments F/U for intakes, ONS tolerance
--- NOTE | 2020-10-24 09:57 | Progress Note ---
Assessment and Plan 70-year-old female with 30 years of sarcoidosis has elevated BNP echocardiogram shows normal LV function but severe pulmonary pretension with RV dilatation RV D-shaped. Patient has cor pulmonale continue diuretic therapy and has therapy as with pulmonology discussed with pulmonary - Patient Problems (1) Acute respiratory failure with hypoxemia Current Visit: Yes Status: Chronic (2) Chest pressure Current Visit: Yes Status: Acute (3) New onset of congestive heart failure Current Visit: Yes Status: Acute (4) Sarcoidosis Current Visit: Yes Status: Chronic (5) Severe malnutrition Current Visit: Yes Status: Chronic (6) Cor pulmonale Current Visit: Yes Status: Acute (7) Pulmonary arterial hypertension Current Visit: Yes Status: Acute Subjective Date of service: 10/24/20 Principal diagnosis: chf Interval history: sob has improved Objective Vital Signs Temp Pulse Resp BP Pulse Ox 10/24/20 09:37 90 10/24/20 08:50 98.1 F 78 19 113/74 100 10/24/20 05:35 97.4 F L 81 18 111/77 99 10/24/20 00:11 98.4 F 95 H 20 105/73 97 10/23/20 22:00 95 H 10/23/20 20:10 98.6 F 103 H 18 117/76 98 10/23/20 12:39 92 10/23/20 12:09 93 H 10/23/20 10:00 93 - Physical Examination General: No Apparent Distress HEENT: Positive: PERRL, Mucus Membranes Moist Neck: Positive: neck supple, trachea midline Cardiac: Positive: Reg Rate and Rhythm, Audible Murmur Lungs: Positive: clear to auscultation Neuro: Positive: Grossly Intact Abdomen: Positive: Soft, Active Bowel Sounds. Negative: Tender, Distended Skin: Positive: Clear Incision: Cardiac Cath Site Musculoskeletal: No Pain, Normal Range of Motion Extremities: Present: normal. Absent: edema - Labs and Meds Comprehensive Metabolic Panel 10/24/20 Range/Units 04:18 Sodium 140 (137-145) mmol/L Potassium 4.4 (3.6-5.0) mmol/L Chloride 104.1 (98-107) mmol/L Carbon Dioxide 31 H (22-30) mmol/L BUN 24 H (7-17) mg/dL Creatinine 0.9 (0.6-1.2) mg/dL Glucose 81 (65-100) mg/dL Calcium 8.7 (8.4-10.2) mg/dL - Imaging and Cardiology Echo: report reviewed (Normal LV function moderate right ventricle dilatation with severe pulmonary hypertension) - Telemetry EKG Rhythm: Sinus Rhythm
[2020-10-24] MEDS: METOPROLOL SUCCINATE XL 25 MG TAB PO SCH (10:32)
[2020-10-24] MEDS: FUROSEMIDE 20 MG TAB PO SCH (10:32)
--- NOTE | 2020-10-24 11:10 | Cat Scan Report ---
CT CHEST WITH CONTRAST INDICATION / CLINICAL INFORMATION: sarcoid, hypoxia , fibrosis. TECHNIQUE: Axial CT images were obtained through the chest after IV contrast. All CT scans at this location are performed using CT dose reduction for ALARA by means of automated exposure control. COMPARISON: None available. FINDINGS: HEART: No significant abnormality. Mild coronary artery calcic ages. THORACIC AORTA: Mild atherosclerotic calcification without acute abnormality. MEDIASTINUM and LAVINIA: No significant abnormality. LUNGS: Grossly abnormal bilateral parenchymal lung tissue with central lobar and paraseptal emphysema tous changes most severe in the biapical region. Additionally there is minimal honeycombing at the brock ng bases. Traction bronchiectasis is noted with significant interlobular septal thickening most sever e in the right upper and middle lobe. PLEURA: Moderate right-sided pleural effusion. Small left-sided pleural effusion. No pneumothorax. ADDITIONAL FINDINGS: 1.4 cm heterogeneous nodule of the left thyroid lobe. UPPER ABDOMEN: No acute findings of the upper abdomen. Heterogeneity noted throughout the hepatic par enchyma (likely perfusion defect) without evidence of focal hepatic lesion. There is a 1.7 cm hyperat tenuating lesion anterior margin of the spleen. Large partially visualized simple renal cyst left inf erior pole. SKELETAL SYSTEM: Multilevel degenerative changes are noted of the spine with exaggerated thoracic kyp hosis. No aggressive lesions are noted. IMPRESSION: 1. Extensive interstitial lung disease and fibrosis as described above likely related to the patient' s known history of sarcoid. 2. Moderate right and small left-sided pleural effusions. 3. 1.7 cm homogenous hyperattenuating lesion of the spleen demonstrates no aggressive features. This is likely benign however given its attenuation, follow-up imaging in 6 to be considered. 4. Incidentally noted 1.4 cm left thyroid nodule. Recommendations for follow-up as below. INCIDENTAL THYROID NODULE RECOMMENDATION RECOMMENDATION: No follow-up recommended. Nonpalpable nodules detected on US or other anatomic imaging studies are termed incidentally discover ed nodules or incidentalomas. Nonpalpable nodules have the same risk of malignancy as palpable nodule s with the same size. Generally, only nodules >1 cm should be evaluated, since they have a greater po tential to be clinically significant cancers. (IVETTE, 2009). Follow up for incidental thyroid nodules <1 cm is not recommended. Diagnostic thyroid ultrasound is recommended only if the patient meets the following criteria: (1) < 35 years of age with normal life expectancy and nodule >= 1 cm. (2) >= 35 years of age with normal life expectancy and nodule >= 1.5 cm. ACR Ultrasound for incidental thyroid nodules: [email or web address] Signer Name: Jn Vincent MD Signed: 10/24/2020 11:05 AM Workstation Name: [id number]
--- NOTE | 2020-10-24 12:03 | Progress Note ---
Assessment and Plan - Patient Problems (1) Edema Current Visit: Yes Status: Acute (2) New onset of congestive heart failure Current Visit: Yes Status: Acute (3) Acute respiratory failure with hypoxemia Current Visit: Yes Status: Chronic (4) Sarcoidosis Current Visit: Yes Status: Chronic (5) Severe malnutrition Current Visit: Yes Status: Chronic (6) Pulmonary fibrosis Current Visit: Yes Status: Acute (7) Pleural effusion Current Visit: Yes Status: Acute Subjective Principal diagnosis: chf Interval history: pt feels better still sob w exertion Objective Vital Signs - 12hr 10/24/20 10/24/20 10/24/20 00:11 05:35 08:50 Temperature 98.4 F 97.4 F L 98.1 F Pulse Rate 95 H 81 78 Respiratory 20 18 19 Rate Blood Pressure 105/73 111/77 113/74 O2 Sat by Pulse 97 99 100 Oximetry 10/24/20 10/24/20 09:37 10:00 Temperature Pulse Rate 67 Respiratory Rate Blood Pressure O2 Sat by Pulse 90 Oximetry Constitutional: no acute distress ENT: oropharynx moist Neck: supple Effort: normal Ascultation: Bilateral: diminished breath sounds Cardiovascular: regular rate and rhythm Gastrointestinal: normoactive bowel sounds Integumentary: normal Extremities: edema Neurologic: normal mental status, non-focal exam Psychiatric: mood appropriate, affect normal CBC and BMP: 10/23/20 05:29 10/24/20 04:18 ABG, PT/INR, D-dimer: PT/INR, D-dimer PT 13.8 Sec. (12.2-14.9) 10/22/20 10:51 INR 1.08 (0.87-1.13) 10/22/20 10:51 Abnormal lab findings: Abnormal Labs 10/22/20 10/22/20 10/22/20 10:51 10:51 10:51 Lymph % (Auto) 12.4 L Lymph # (Auto) 1.0 L Seg Neutrophils % 77.0 H Carbon Dioxide BUN Glucose NT-Pro-B Natriuret Pep 57678 H Albumin 3.4 L Free T4 10/22/20 10/23/20 10/23/20 18:52 05:29 05:29 Lymph % (Auto) 9.7 L Lymph # (Auto) 0.5 L Seg Neutrophils % 87.9 H Carbon Dioxide BUN 21 H Glucose 175 H NT-Pro-B Natriuret Pep Albumin Free T4 1.61 H 10/24/20 04:18 Lymph % (Auto) Lymph # (Auto) Seg Neutrophils % Carbon Dioxide 31 H BUN 24 H Glucose NT-Pro-B Natriuret Pep Albumin Free T4 CT scan - chest: report reviewed
[2020-10-25] MEDS: methylPREDNISolone Sod Succinate 40 MG/1 ML INJ IV SCH (06:25)
--- NOTE | 2020-10-25 08:17 | Progress Note ---
Assessment and Plan Assessment and plan: (1) New onset of congestive heart failure Current Visit: Yes Status: Acute Plan to address problem: Diastolic CHF: Strict I/O, monitor urine output every shift, daily weight, afterload reduction, echocardiogram ordered and is pending at time of admission, cardiology team consulted in ED, thyroid panel, magnesium level, supplemental oxygen. 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 (3) Severe malnutrition Current Visit: Yes Status: Acute Plan to address problem: Increase protein intake, dietary supplementation as needed (4) DVT prophylaxis Current Visit: Yes Status: Acute Plan to address problem: SCD to bilateral lower extremities while in bed, patient is ambulatory. (5) Advance care planning Current Visit: Yes Status: Acute Plan to address problem: 10/23/2020 -Patient is admitted for suspected CHF, patient has elevated BNP. Cardiology consulted and will get echo -Sarcoidosis; pulmonary consulted and recommend CT of the chest -Severe malnutrition; I will consult nutrition -Patient need PT OT evaluation -We will do home O2 evaluation 10/24/2020 -CT chest was not done because patient did not have IV access -Pulmonary and cardiology consult appreciated -Patient is off oxygen 10/25/2020 -CT chest was done and showed moderate pleural effusion, with extensive fibrosis, pulmonary was consulted and said will do thoracentesis, on prednisone -Echo showed pulmonary hypertension, management is per pulmonary -Cardiology consult appreciated -Patient currently does not have any shortness of breath, off oxygen saturating well -Disposition is per pulmonary History Interval history: Patient was seen and evaluated this morning Patient states she is feeling better, patient was off oxygen Hospitalist Physical - Physical exam Narrative exam: Not in cardiopulmonary distress. The patient appeared well nourished and normally developed. Vital signs as documented. Head exam is unremarkable. No scleral icterus . Neck is without jugular venous distension, thyromegaly, or carotid bruits. Lungs are clear to auscultation. Cardiac exam reveals regular rate and Rhythm. Abdominal exam reveals normal bowel sounds, nontender, no organomegaly. Extremities bilateral lower extremity swelling. 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 No focal weakness. - Constitutional Vitals: Temp Pulse Resp BP Pulse Ox 98.0 F 80 14 109/76 93 10/25/20 03:47 10/25/20 03:47 10/25/20 03:47 10/25/20 03:47 10/25/20 03:47 General appearance: Present: mild distress, cachectic HEART Score - HEART Score EKG: Non-specific Age: > 65 Risk factors: 1-2 risk factors Troponin: Troponin T < 0.010 ng/mL (0.00-0.029) 10/23/20 12:49 Troponin: < normal limit Results - Labs CBC & Chem 7: 10/23/20 05:29 10/24/20 04:18 Labs: Laboratory Last Values WBC 5.0 K/mm3 (4.5-11.0) 10/23/20 05:29 RBC 4.43 M/mm3 (3.65-5.03) 10/23/20 05:29 Hgb 12.7 gm/dl (10.1-14.3) 10/23/20 05:29 Hct 39.5 % (30.3-42.9) 10/23/20 05:29 MCV 89 fl (79-97) 10/23/20 05:29 MCH 29 pg (28-32) 10/23/20 05:29 MCHC 32 % (30-34) 10/23/20 05:29 RDW 14.5 % (13.2-15.2) 10/23/20 05:29 Plt Count 260 K/mm3 (140-440) 10/23/20 05:29 Lymph % (Auto) 9.7 % (13.4-35.0) L 10/23/20 05:29 [place] % (Auto) 2.0 % (0.0-7.3) 10/23/20 05:29 Eos % (Auto) 0.1 % (0.0-4.3) 10/23/20 05:29 Baso % (Auto) 0.3 % (0.0-1.8) 10/23/20 05:29 Lymph # (Auto) 0.5 K/mm3 (1.2-5.4) L 10/23/20 05:29 [place] # (Auto) 0.1 K/mm3 (0.0-0.8) 10/23/20 05:29 Eos # (Auto) 0.0 K/mm3 (0.0-0.4) 10/23/20 05:29 Baso # (Auto) 0.0 K/mm3 (0.0-0.1) 10/23/20 05:29 Seg Neutrophils % 87.9 % (40.0-70.0) H 10/23/20 05:29 Seg Neutrophils # 4.4 K/mm3 (1.8-7.7) 10/23/20 05:29 PT 13.8 Sec. (12.2-14.9) 10/22/20 10:51 INR 1.08 (0.87-1.13) 10/22/20 10:51 APTT 27.7 Sec. (24.2-36.6) 10/22/20 10:51 Sodium 140 mmol/L (137-145) 10/24/20 04:18 Potassium 4.4 mmol/L (3.6-5.0) 10/24/20 04:18 Chloride 104.1 mmol/L (98-107) 10/24/20 04:18 Carbon Dioxide 31 mmol/L (22-30) H 10/24/20 04:18 Anion Gap 9 mmol/L 10/24/20 04:18 BUN 24 mg/dL (7-17) H 10/24/20 04:18 Creatinine 0.9 mg/dL (0.6-1.2) 10/24/20 04:18 Estimated GFR > 60 ml/min 10/24/20 04:18 BUN/Creatinine Ratio 27 % 10/24/20 04:18 Glucose 81 mg/dL (65-100) 10/24/20 04:18 Calcium 8.7 mg/dL (8.4-10.2) 10/24/20 04:18 Magnesium 1.90 mg/dL (1.7-2.3) 10/22/20 18:52 Total Bilirubin 0.40 mg/dL (0.1-1.2) 10/22/20 10:51 AST 22 units/L (5-40) 10/22/20 10:51 ALT 18 units/L (7-56) 10/22/20 10:51 Alkaline Phosphatase 115 units/L (35-129) 10/22/20 10:51 Troponin T < 0.010 ng/mL (0.00-0.029) 10/23/20 12:49 NT-Pro-B Natriuret Pep 82606 pg/mL (0-900) H 10/22/20 10:51 Total Protein 7.3 g/dL (6.3-8.2) 10/22/20 10:51 Albumin 3.4 g/dL (3.9-5) L 10/22/20 10:51 Albumin/Globulin Ratio 0.9 % 10/22/20 10:51 TSH 0.796 mlU/mL (0.270-4.200) 10/22/20 18:52 Free T4 1.61 ng/dL (0.76-1.46) H 10/22/20 18:52 - Diagnostic Impressions Diagnostic Impressions: Echocardiogram 10/22/20 12:58 Transthoracic Echocardiogram Indication: Chest pain BP: 115/79 HR: 93 Conclusions *Global left ventricular systolic function is normal. *The estimated ejection fraction is 50-55%. *There is septal flattening of the interventricular septum consistent with right ventricular volume or pressure overload. *The right ventricle is mild to moderately dilated. *The right ventricular global systolic function is mildly reduced. *The right atrium is mildly dilated. *There is trace of mitral regurgitation. *There is no evidence of aortic regurgitation. *There is moderate tricuspid regurgitation. *The right ventricular systolic pressure is calculated at 66 mmHg. Findings Left Ventricle: The left ventricular chamber size is normal. Global left ventricular systolic function is normal. The estimated ejection fraction is 50-55%. There is septal flattening of the interventricular septum consistent with right ventricular volume or pressure overload. Abnormal left ventricular diastolic filling is observed, consistent with impaired relaxation. Left Atrium: The left atrial chamber size is normal. Right Ventricle: The right ventricle is mild to moderately dilated. The right ventricular global systolic function is mildly reduced. Right Atrium: The right atrium is mildly dilated. Aortic Valve: Mild aortic leaflet calcification is visualized. There is no evidence of aortic regurgitation. Mitral Valve: The mitral valve leaflets are mildly thickened. There is trace of mitral regurgitation. Tricuspid Valve: The tricuspid valve leaflets are normal. There is moderate tricuspid regurgitation. The right ventricular systolic pressure is calculated at 66 mmHg. Pulmonic Valve: The pulmonic valve appears normal. There is trace pulmonic regurgitation. Pericardium: There is no pericardial effusion. Aorta: The aorta appears normal. Venous: The inferior vena cava appears normal in size. There is less than 50% respiratory change in the inferior vena cava dimension. Measurements Chambers 2D Name Value Normal Range IVSd (2D) 1.09 cm (0.6 - 1.1) LVPWd (2D) 0.9 cm (0.6 - 1.1) LVIDd (2D) 3.22 cm (3.7 - 5.6) LVIDs (2D) 2.28 cm (2 - 3.8) LV FS (2D) 29.25 % - EF Teichholz (2D) 57.46 % - Ao root diameter (2D) 2.08 cm (2 - 3.7) Volumes/Mass Name Value Normal Range LA ESV SP 4CH (A/L) 24.23 ml - LA ESV SP 2CH (A/L) 19.81 ml - LA ESV BP (A/L) 22.69 ml - LA ESV BP (A/L) index 15.13 ml/m2 - LA ESV SP 4CH (MOD) 21.57 ml - LA ESV SP 2CH (MOD) 20.36 ml - LA ESV BP (MOD) 21 ml - LA ESV BP (MOD) index 14 ml/m2 - Diastolic/Systolic Function Name Value Normal Range MV E-wave Vmax 0.52 m/sec - MV deceleration time 189.47 msec - MV A-wave Vmax 0.9 m/sec - MV E:A ratio 0.58 ratio - Aortic Valve Name Value Normal Range AV Vmax 1.08 m/sec - AV VTI 18.28 cm - AV peak gradient 4.68 mmHg - AV mean gradient 2.38 mmHg - LVOT diameter 2.04 cm - LVOT Vmax 0.78 m/sec - LVOT VTI 14.26 cm - LVOT peak gradient 2.43 mmHg - LVOT mean gradient 1.27 mmHg - SV LVOT 46.41 ml - DAVID (continuity Vmax) 2.35 cm2 - DAVID (continuity VTI) 2.54 cm2 - Ascending Ao 2.33 cm - Tricuspid Valve Name Value Normal Range TR Vmax 3.81 m/sec - TR peak gradient 58 mmHg - RAP 8 mmHg - RVSP 66 mmHg - IVC diameter 2.05 cm (1.2 - 2.3) Pulmonic Valve/Qp:Qs Name Value Normal Range PV Vmax 0.87 m/sec - PV peak gradient 3.06 mmHg - TX end-diastolic Vmax 2.25 m/sec - PV acceleration time 114.18 msec - [place]/IV: Voiding Method Toilet Active Medications - Current Medications Current Medications: Generic Name Dose Route Start Last Admin Trade Name Freq PRN Reason Stop Dose Admin Acetaminophen 650 mg 10/22/20 13:00 Acetaminophen 325 Mg Tab PO Q4H PRN Pain MILD(1-3)/Fever >100.5/QUINONES Albuterol 2.5 mg 10/22/20 16:00 Albuterol 2.5 Mg/3 Ml Nebu IH Q4HRT PRN Shortness Of Breath Furosemide 20 mg 10/23/20 11:00 10/24/20 10:32 Furosemide 20 Mg Tab PO 20 mg QDAY GABBI Administration Methylprednisolone Sodium Succinate 40 mg 10/22/20 14:00 10/25/20 06:25 Methylprednisolone Sod Succinate 40 Mg/1 Ml Inj IV 40 mg Q8HR GABBI Administration Metoprolol Succinate 25 mg 10/23/20 11:00 10/24/20 10:32 Metoprolol Succinate Xl 25 Mg Tab PO 25 mg QDAY GABBI Administration Ondansetron HCl 4 mg 10/22/20 13:30 Ondansetron 4 Mg/2 Ml Inj IV Q8H PRN Nausea And Vomiting Sodium Chloride 10 ml 10/22/20 14:00 10/24/20 22:10 Sodium Chloride 0.9% 10 Ml Flush Syringe IV 10 ml BID GABBI Administration Sodium Chloride 10 ml 10/22/20 13:30 10/25/20 06:25 Sodium Chloride 0.9% 10 Ml Flush Syringe IV 10 ml PRN PRN Administration LINE FLUSH Nutrition/Malnutrition Assess - Dietary Evaluation Nutrition/Malnutrition Findings: Nutrition Notes Start: 10/23/20 10:48 Freq: Status: Active Protocol: Document 10/23/20 10:48 LM (Rec: 10/23/20 11:07 LM [email or web address]) Nutrition Notes Need for Assessment generated from: MD Order Initial or Follow up Assessment Current Diagnosis Heart Failure Other Pertinent Diagnosis Sarcoidosis Current Diet Cardiac Labs/Tests BUN 21 BG 175 Pertinent Medications Solumedrol Height 5 ft 4 in Weight 48.89 kg [place] Body Weight (kg) 54.54 BMI 18.5 Weight change and time frame 20-23% wt loss in 1 year Pitting edema noted Weight Status Underweight Subjective/Other Information MD consult for malnutrition. 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 Pt ate some toast for breakfast due to not liking the food. Food preferences updated. Pt ate 100% yesterday per chart. Pt newly dx with CHF. Discussed and provided HF handout. Observed muscle wasting of clavicle and deltoid area. Burn Absent Trauma Absent GI Symptoms None Current % PO Fair (50-74%) Minimum of two criteria Yes Interpretation of Weight Loss (non- 20% in 1 year severe) Muscle Mass Mild Depletion (non-severe) Fluid Accumulation Mild (non-severe) #2 Nutrition Diagnosis Food and nutrition-related knowledge deficit Etiology No prior diet education on CHF As Evidenced by Signs and Symptoms Pt with 2+ pitting edema #1 Nutrition Diagnosis Malnutrition Etiology Sarcoidosis, CHF As Evidenced by Signs and Symptoms 20% wt loss in 1 year, 2+ pitting edema, muscle wasting of clavicle and deltoid Is patient on ventilator? No Is Patient Ambulatory and/or Out of Bed Yes REE-([place] or-ambulatory/OOB) [ 1285.570 [id number]] Kcal/Kg value to use for calculation 33 Approximate Energy Requirements Using 1613 kcal/Kg Additional Notes Protein: 58-74g (1.2-1.5g/kg) Fluid: 1500-1900ml or per MD Nutrition Intervention Change Diet Order: Continue Add Supplement/Snack (indicate name/kcal Ensure Enlive BID /protein ) Provides kCal: 700 Provides Protein (gm) 40 Teaching Recipient Patient Learning Readiness Good Teaching Methods Discussion,Handout Education Handouts Provided CHF Nutrition Therapy Barriers to Learning No Barriers RD phone number provided Yes Patient aware of follow up options Yes Goal #1 Meet at least 80% of energy and protein needs Goal #2 Wt gain/maintenacne Anticipated Discharge Needs: Cardiac with ONS PRN Follow-Up By: 10/25/20 Additional Comments F/U for intakes, ONS tolerance
[2020-10-25 09:30] VITALS: BP 115/84
[2020-10-25] MEDS: FUROSEMIDE 20 MG TAB PO SCH (09:32)
[2020-10-25] MEDS: METOPROLOL SUCCINATE XL 25 MG TAB PO SCH (09:32)
--- NOTE | 2020-10-25 10:18 | Progress Note ---
Assessment and Plan 70-year-old female with 30 years of sarcoidosis has elevated BNP echocardiogram shows normal LV function but severe pulmonary pretension with RV dilatation RV D-shaped. Patient has cor pulmonale continue diuretic therapy and has therapy as with pulmonology discussed with pulmonary. Pt for possible US guided thoracentesis today. Currently stable cardiac status. Nothing further to add from cardiac perspective at this time. Will sign off. Follow up in our [place] office with Dr. Jovel on 11/22/2020 @ 1:45PM. The patient has been seen in conjunction with Dr. Jovel who agrees with the assessment and plan of care. - Patient Problems (1) Acute respiratory failure with hypoxemia Current Visit: Yes Status: Chronic (2) Chest pressure Current Visit: Yes Status: Resolved (3) New onset of congestive heart failure Current Visit: Yes Status: Acute (4) Sarcoidosis Current Visit: Yes Status: Chronic (5) Severe malnutrition Current Visit: Yes Status: Chronic (6) Cor pulmonale Current Visit: Yes Status: Acute (7) Pulmonary arterial hypertension Current Visit: Yes Status: Acute Subjective Date of service: 10/25/20 Principal diagnosis: chf Interval history: pt lying flat comfortably in bed, no current cardiac complaints. for possible US guided thoracentesis today. tele reviewed - in SR HR 70s. Objective Last Vital Signs Temp 97.8 F 10/25/20 08:45 Pulse 80 10/25/20 09:32 Resp 18 10/25/20 08:45 BP 115/84 10/25/20 09:32 Pulse Ox 93 10/25/20 08:45 - Physical Examination General: No Apparent Distress HEENT: Positive: PERRL, Mucus Membranes Moist Neck: Positive: neck supple, trachea midline Cardiac: Positive: Reg Rate and Rhythm, S1/S2 Lungs: Positive: Decreased Breath Sounds Neuro: Positive: Grossly Intact Abdomen: Positive: Soft, Active Bowel Sounds. Negative: Tender, Distended Skin: Positive: Clear Incision: Cardiac Cath Site Musculoskeletal: No Pain, Normal Range of Motion Extremities: Present: normal. Absent: edema - Imaging and Cardiology Echo: report reviewed (Normal LV function moderate right ventricle dilatation with severe pulmonary hypertension) - Telemetry EKG Rhythm: Sinus Rhythm
--- NOTE | 2020-10-25 12:28 | Ultrasound Report ---
Limited right chest Ultrasound HISTORY: Evaluate for right-sided pleural effusion for thoracentesis. TECHNIQUE: Grayscale and color imaging performed. COMPARISON: CT chest from yesterday IMPRESSION: There is a trace right-sided pleural effusion with volume insufficient for thoracentesis. These findings were discussed with the patient. Signer Name: Praveen Quinn MD Signed: 10/25/2020 12:24 PM Workstation Name: [id number]
--- NOTE | 2020-10-25 14:05 | Discharge Summary ---
Providers - Providers Date of Admission: 10/22/20 12:54 Date of discharge: 10/25/20 Attending physician: DURGA CHAVIRA MD 10/22/20 12:54 Consult to Physician [CONS] Routine Comment: Consulting Provider: DEMETRIUS STALEY Physician Instructions: Reason For Exam: Sarcoidosis 10/22/20 15:08 Consult to Cardiology [CONS] Routine Consulting Provider: BILLY WELLS Reason For Exam: CHF/sarcoidosis 10/23/20 08:40 Physical Therapy Evaluation and Treat [CONS] Routine Comment: Reason For Exam: Generalized weakness 10/23/20 08:41 Consult to Dietitian/Nutrition [CONS] Routine Physician Instructions: Reason For Exam: Reason for Consult: Malnutrition Occupational Therapy Evaluate and Treat [CONS] Routine Comment: Reason For Exam: Generalized weakness Primary care physician: JONNY TABOR [facility] Reason for admission: pulmonary hypertension, sarcoidosis Condition: Stable Hospital course: 70 YO Female with Sarcoidosis, Severe Malnutrition presents to ED for evaluation. Patient reports "I feel weak". Patient states that she has experienced generalized weakness, decreased exercise tolerance, dyspnea on exertion, dyspnea at rest, bilateral lower extremity edema over the past 3 weeks with persistently worsening symptoms over the past 4 days. Patient was seen and evaluated by her primary care physician today and instructed to seek further care at [facility]. Patient transported to [facility] via private vehicle for further care and evaluation of the aforementioned symptoms. Patient seen and evaluated in the emergency department. All lab and imaging studies reviewed. Patient found to have clinical symptoms consistent with CHF decompensation. Patient also found to have CT scan findings on the chest consistent with pulmonary sarcoidosis. Patient admitted to telemetry and initiated on CHF protocol. Pulmonology team consulted in ED. Cardiology team consulted in ED. Patient denies fever, chills, chest pain, palpitation, productive cough, skin rash, recent ill contacts, or known exposure to COVID-19. No prior admission for review. No medication listed at time of admission for reconciliation. Advanced care planning conducted in ED. Hospital course (1) New onset of congestive heart failure Current Visit: Yes Status: Acute Plan to address problem: Diastolic CHF: Strict I/O, monitor urine output every shift, daily weight, afterload reduction, echocardiogram ordered and is pending at time of admission, cardiology team consulted in ED, thyroid panel, magnesium level, supplemental oxygen. 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 (3) Severe malnutrition Current Visit: Yes Status: Acute Plan to address problem: Increase protein intake, dietary supplementation as needed (4) DVT prophylaxis Current Visit: Yes Status: Acute Plan to address problem: SCD to bilateral lower extremities while in bed, patient is ambulatory. (5) Advance care planning Current Visit: Yes Status: Acute Plan to address problem: 10/23/2020 -Patient is admitted for suspected CHF, patient has elevated BNP. Cardiology consulted and will get echo -Sarcoidosis; pulmonary consulted and recommend CT of the chest -Severe malnutrition; I will consult nutrition -Patient need PT OT evaluation -We will do home O2 evaluation 10/24/2020 -CT chest was not done because patient did not have IV access -Pulmonary and cardiology consult appreciated -Patient is off oxygen 10/25/2020 -CT chest was done and showed moderate pleural effusion, with extensive fibrosis, pulmonary was consulted and said will do thoracentesis, on prednisone -Echo showed pulmonary hypertension, management is per pulmonary -Cardiology consult appreciated -Patient currently does not have any shortness of breath, off oxygen saturating well -Disposition is per pulmonary Patient was evaluated by radiology and ultrasound was done and said there is no enough fluid to do thoracentesis. Patient does not have any shortness of breath. 6-minute walk was done and does not need oxygen. Patient was evaluated by Dr. Staley and he said she does not need any steroids and she is good to discharge. Patient will follow with Dr. Treviño in 2 weeks in the office. Patient was given Lasix to be taken at home. Patient will follow with cardiology as an outpatient. Disposition: - TO HOME OR SELFCARE Time spent for discharge: 31 minutes - Discharge Diagnoses (1) Cor pulmonale Status: Acute (2) Edema Status: Acute (3) Pulmonary arterial hypertension Status: Acute (4) Pulmonary fibrosis Status: Acute (5) Acute respiratory failure with hypoxemia Status: Chronic (6) Sarcoidosis Status: Chronic (7) Severe malnutrition Status: Chronic Core Measure Documentation - Palliative Care Palliative Care/ Comfort Measures: Not Applicable - Core Measures Any of the following diagnoses?: none Exam - Physical Exam Narrative exam: Not in cardiopulmonary distress. The patient appeared well nourished and normally developed. Vital signs as documented. Head exam is unremarkable. No scleral icterus . Neck is without jugular venous distension, thyromegaly, or carotid bruits. Lungs are clear to auscultation. Cardiac exam reveals regular rate and Rhythm. Abdominal exam reveals normal bowel sounds, nontender, no organomegaly. Extremities bilateral lower extremity swelling. 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 No focal weakness. - Constitutional Vitals: Temp Pulse Resp BP Pulse Ox 97.8 F 80 18 115/84 93 10/25/20 08:45 10/25/20 09:32 10/25/20 08:45 10/25/20 09:32 10/25/20 08:45 Plan Activity: no restrictions Weight Bearing Status: Full Weight Bearing Diet: low salt Follow up with: JONNY TABOR MD [Primary Care Provider] - 7 Days MERLENE TREVIÑO MD [Staff Physician] - 14 Days YA SUBRAMANIAN MD [Staff Physician] - 14 Days Prescriptions: Furosemide [Lasix TAB] 20 mg PO QDAY #30 tablet Metoprolol Xl [Metoprolol SUCCINATE ER TAB] 25 mg PO QDAY #30 tablet
--- NOTE | 2020-10-25 14:09 | Progress Note ---
Assessment and Plan Pulm adair, no objection to discharge. Can follow up as an out patient if she chooses to. Subjective Date of service: 10/25/20 Principal diagnosis: chf Interval history: CHart reviewed, spoke with nurse taking care of patient and physician as well. Not enough fluid to tap on ultrasound. Patient remains stable on Room air. Objective Vital Signs - 12hr 10/25/20 10/25/20 10/25/20 03:47 07:44 08:30 Temperature 98.0 F Pulse Rate 80 70 Respiratory 14 Rate Blood Pressure 109/76 O2 Sat by Pulse 93 97 Oximetry 10/25/20 10/25/20 08:45 09:32 Temperature 97.8 F Pulse Rate 80 80 Respiratory 18 Rate Blood Pressure 115/84 115/84 O2 Sat by Pulse 93 Oximetry Constitutional: no acute distress ENT: oropharynx moist Neck: supple Effort: normal Ascultation: Bilateral: clear, diminished breath sounds Cardiovascular: regular rate and rhythm Gastrointestinal: normoactive bowel sounds Integumentary: normal Extremities: edema Neurologic: normal mental status, non-focal exam Psychiatric: mood appropriate, affect normal CBC and BMP: 10/23/20 05:29 10/24/20 04:18 ABG, PT/INR, D-dimer: PT/INR, D-dimer PT 13.8 Sec. (12.2-14.9) 10/22/20 10:51 INR 1.08 (0.87-1.13) 10/22/20 10:51 Abnormal lab findings: Abnormal Labs 10/22/20 10/22/20 10/22/20 10:51 10:51 10:51 Lymph % (Auto) 12.4 L Lymph # (Auto) 1.0 L Seg Neutrophils % 77.0 H Carbon Dioxide BUN Glucose NT-Pro-B Natriuret Pep 26792 H Albumin 3.4 L Free T4 10/22/20 10/23/20 10/23/20 18:52 05:29 05:29 Lymph % (Auto) 9.7 L Lymph # (Auto) 0.5 L Seg Neutrophils % 87.9 H Carbon Dioxide BUN 21 H Glucose 175 H NT-Pro-B Natriuret Pep Albumin Free T4 1.61 H 10/24/20 04:18 Lymph % (Auto) Lymph # (Auto) Seg Neutrophils % Carbon Dioxide 31 H BUN 24 H Glucose NT-Pro-B Natriuret Pep Albumin Free T4
== END 2020-10-25 14:50 | disposition home or self-care (01) | DRG 196 ==
LOC: ED 10:19 → 4A 12:54
PROVIDERS: ADMIT Internal Medicine; ATTEND Internal Medicine
DX: D86.89 Sarcoidosis of other sites (principal); E43 Unspecified severe protein-calorie malnutrition; J96.01 Acute respiratory failure with hypoxia; I50.33 Acute on chronic diastolic (congestive) heart failure; Z68.1 Body mass index [BMI] 19.9 or less, adult; J84.10 Pulmonary fibrosis, unspecified; I27.21 Secondary pulmonary arterial hypertension; I27.81 Cor pulmonale (chronic)
CPT/HCPCS: 36415; 71045; 71260; 76604; 80048; 80053; 83735; 83880; 84439; 84443; 84484; 85025; 85610; 85730; 93005; 93306; 94640; 94760; 96374; G0378; J1940; J2920; Q9967